=== PATIENT | female | born 1995 | race Caucasian/White ===

== ENCOUNTER 2025-06-20 16:55 | Emergency (ER) | payer BC ==
[~2025-06-20] VITALS: Ht 167.6 cm; Wt 77.0 kg
[2025-06-20 16:59] VITALS: O2SAT 100
[2025-06-20 17:52] LABS: PLATELET 325 x1000/uL (130-400); RED BLOOD CELL COUNT 3.70 mill/uL (4.2-5.4); RED CELL DISTRIBUTION WIDTH 13.2 % (11.6-14.6)
[2025-06-20 17:58] LABS: CLARITY URINE CLEAR (CLEAR); COLOR URINE YELLOW (YELLOW); GLUCOSE URINE NEGATIVE (NEGATIVE); KETONES URINE NEGATIVE (NEGATIVE); LEUKOCYTE ESTERASE URINE NEGATIVE (NEGATIVE); NITRITE URINE NEGATIVE (NEGATIVE); OCCULT BLOOD URINE NEGATIVE (NEGATIVE); PH URINE 6.0 (4.5-8.0); PROTEIN URINE NEGATIVE (NEGATIVE); SPECIFIC GRAVITY URINE 1.017 (1.005-1.030); UROBILINOGEN URINE 1.0 E.U./dL (0.2-1.0)
[2025-06-20 18:05] LABS: CREATININE 0.6 mg/dL (0.6-1.0)
[2025-06-20 18:06] LABS: UREA NITROGEN BLOOD 7 mg/dL (9-23)
[2025-06-20 18:08] LABS: ASPARTATE AMINOTRANSFERASE 15 IU/L (<34); BILIRUBIN TOTAL 0.3 mg/dL (0.1-1.0); PROTEIN TOTAL 7.1 g/dL (6.0-8.3)
[2025-06-20 18:20] VITALS: TEMP 36.7
[2025-06-20 19:19] VITALS: BP 101/56; PULSE 68; RESP 16; O2SAT 99
== END 2025-06-20 19:20 | disposition home or self-care (01) ==
LOC: ER 16:55
DX: O26.892 Other specified pregnancy related conditions, second trimester (principal); R10.2 Pelvic and perineal pain; Z3A.23 23 weeks gestation of pregnancy; Z87.440 Personal history of urinary (tract) infections; Z88.0 Allergy status to penicillin
CPT/HCPCS: 36415; 76805; 80053; 81003; 81025; 84702; 85027; 86850; 86900; 99284